=== PATIENT | male | born 1990 | race Caucasian/White ===

== ENCOUNTER 2021-04-18 20:07 | Emergency (ER) | payer MEDICAID, OTHER ==
[~2021-04-18] VITALS: Ht 180.3 cm; Wt 71.4 kg
[2021-04-18 20:09] VITALS: BP 121/96
== END 2021-04-18 23:01 | disposition home or self-care (01) ==
LOC: ER 20:08
DX: S16.1XXA Strain of muscle, fascia and tendon at neck level, initial encounter (principal); S06.0X0A Concussion without loss of consciousness, initial encounter; M25.512 Pain in left shoulder; M54.2 Cervicalgia; R11.2 Nausea with vomiting, unspecified; F17.200 Nicotine dependence, unspecified, uncomplicated; Z72.89 Other problems related to lifestyle; W11.XXXA Fall on and from ladder, initial encounter; Y93.89 Activity, other specified; Y92.89 Other specified places as the place of occurrence of the external cause; Y99.8 Other external cause status
CPT/HCPCS: 72125; 99284